=== PATIENT | female | born 1985 | race Caucasian/White ===

== ENCOUNTER 2017-08-24 08:35 | Outpatient (CLI) | payer MEDICAID ==
[2017-08-24] MEDS ORDERED: GADOBUTROL 7.5 MMOL/7.5 ML VIAL ONE (08:50)
[2017-08-24] MEDS ORDERED: GADOBUTROL 7.5 MMOL/7.5 ML VIAL IVP ONE ×2 (09:26)
--- NOTE | 2017-08-24 12:58 | MRI Report ---
EXAM: MRI BRAIN WITHOUT AND WITH CONTRAST EXAM DATE: 08/24/2017 10:48 AM. CLINICAL HISTORY: MULTIPLE SCLEROSIS. COMPARISON: MR brain 10/18/2014 TECHNIQUE: Multiplanar, multisequence T1-weighted and fluid-sensitive MR sequences of the brain were performed. Sequences optimized for routine evaluation. Other: None. IV Contrast: Yes. 6.5 mL Gadavist FINDINGS: Brain Volume: Normal for age. Parenchyma: No acute hemorrhage, mass, or infarct. Numerous, greater than 30 T2/FLAIR hyperintense wh ite matter lesions are seen supratentorially and infratentorially, many with corresponding T1 hypoint ensities, compatible with demyelinating plaques. Compared to the prior study, the following new lesio ns are seen: A 3 mm lesion anterior left medulla (series 501 image 4), a 5 mm lesion anterior medial left cerebellar hemisphere (series 501 image 6), a 6 mm lesion lateral right frontal lobe (series 601 image 20), an 8 mm lesion anterior left centrum semiovale (series 601 image 19), a 9 mm lesion right parietal lobe (series 601 image 17), a 9 mm lesion right parietal lobe (series 601 image 16), a 9 mm lesion left periatrial white matter (series 601 image 16), an 11 mm lesion adjacent to frontal horn of the right lateral ventricle (series 601 image 15), a 7 mm lesion anterior left frontal lobe (serie s 601 image 15), a 9 mm lesion anterior right frontal lobe (series 601 image 14), a 9 mm lesion anter ior left frontal lobe (series 601 image 14), a 14 mm lesion posterior limb left internal capsule (ser ies 601 image 13), an 8 mm lesion anterior left temporal lobe (series 601 image 11). Of these new les ions, the following lesions also enhance, suggesting active inflammation/demyelination: Lesion within the anterior left medulla (series 901 image 4), a lesion lateral right frontal lobe (series 901 imag e 19), a second lesion lateral right frontal lobe (series 901 image 20) Ventricles/Cisterns: No hydrocephalus. No abnormal extra-axial fluid collection or hemorrhage. Orbits: Symmetric and unremarkable. Sella Turcica: The pituitary gland, cavernous sinuses, suprasellar cistern and optic chiasm are unrem arkable. IAC: Symmetric and unremarkable. Vasculature: Normal signal flow void is seen in the major arterial structures at the skull base. The dural sinuses are patent and enhance normally. Sinuses: No acute sinus disease. Bones: No focal pathologic appearing marrow signal changes. Other: None. IMPRESSION: 1. Numerous, greater than 30 T2/FLAIR hyperintense white matter lesions are seen supratentorially and infratentorially, many with corresponding T1 hypointensities, compatible with demyelinating plaques. 2. Compared to the prior study performed on 10/18/2014, at least 13 new lesions are seen both above a nd below the tentorium, as detailed above. 3. Of these new lesions, the following lesions also enhance, suggesting active inflammation/demyelina tion: Lesion within the anterior left medulla (series 901 image 4), a lesion lateral right frontal lo be (series 901 image 19), and a second lesion lateral right frontal lobe (series 901 image 20) 4. Qualitatively normal brain volume. [facility] Referring Provider Line: [phone] SITE ID: [id number]
== END 2017-08-24 08:36 | disposition home or self-care (01) ==
LOC: DI 08:35
PROVIDERS: ATTEND Psychiatry & Neurology Neurology
DX: G35 Multiple sclerosis (principal)
CPT/HCPCS: 70553; A9585

== ENCOUNTER 2017-10-12 13:57 | Outpatient (CLI) | payer MEDICAID ==
[~2017-10-12 13:57] MED LIST: GADOBUTROL 7.5 MMOL/7.5 ML SYRINGE ONE
[2017-10-12] MEDS ORDERED: GADOBUTROL 7.5 MMOL/7.5 ML SYRINGE IVP ONE (14:46)
--- NOTE | 2017-10-13 08:23 | MRI Report ---
EXAM: MRI BRAIN WITHOUT AND WITH CONTRAST EXAM DATE: 10/12/2017 03:10 PM. CLINICAL HISTORY: Multiple sclerosis follow-up. COMPARISON: 08/24/2017. TECHNIQUE: Multiplanar, multisequence T1-weighted and fluid-sensitive MR sequences of the brain were performed. Sequences optimized for White matter evaluation. Other: None. IV Contrast: Without and wit h 7 mL Gadavist. FINDINGS: Brain Volume: Subjectively stable. Parenchyma: No evidence for acute or recent ischemic infarct, cerebral hemorrhage or space-occupying tumor-like mass. New prominent plaque-like T2 hyperintensity in the left postcentral gyrus accompanied by a central re gion of ovoid strong enhancement measuring 6 x 4 mm. This is consistent with interval disease progres rafael and activity. Enhancing lesions seen on the prior study no longer enhance. Extensive white matter disease T1 hypointense/T2 hyperintense lesion burden above and below the tento rium otherwise appears grossly stable. Ventricles/Cisterns: No hydrocephalus. No abnormal extra-axial fluid collection or hemorrhage. Orbits: Symmetric and unremarkable. Sella Turcica: The pituitary gland, cavernous sinuses, suprasellar cistern and optic chiasm are unrem arkable. IAC: Symmetric and unremarkable. Vasculature: Normal signal flow void is seen in the major arterial structures at the skull base. The dural sinuses are patent and enhance normally. Sinuses: Stable multifocal paranasal sinus disease. Bones: No developing focal pathologic appearing marrow signal changes. Other: None. IMPRESSION: 1. Interval white matter disease progression. There is a new dominant plaque-like T2 hyperintensity i n the left postcentral gyrus with enhancement consistent with disease activity. 2. White matter disease enhancement seen previously has resolved. 3. Extensive T1 hypointense/T2 hyperintense lesion burden above and below the tentorium consistent wi th MS otherwise appears stable. [facility] Referring Provider Line: [phone] SITE ID: [id number]
== END 2017-10-12 13:58 | disposition home or self-care (01) ==
LOC: DI 13:57
PROVIDERS: ATTEND Psychiatry & Neurology Neurology
DX: R90.82 White matter disease, unspecified (principal); G35 Multiple sclerosis
CPT/HCPCS: 70553; A9585

== ENCOUNTER 2017-10-24 11:30 | Outpatient (CLI) | payer MEDICAID | END 2017-10-24 11:45 | disposition home or self-care (01) | LOC: RT.N 11:30 | PROVIDERS: ATTEND Nurse Practitioner Gerontology | DX: R00.2 Palpitations (principal); R07.9 Chest pain, unspecified | CPT/HCPCS: 93005 ==

== ENCOUNTER 2017-10-26 09:33 | Outpatient (CLI) | payer MEDICAID ==
[2017-10-26 13:57] LABS: ALBUMIN 4.6 g/dL (3.2-5.5); ALBUMIN/GLOBULIN RATIO 1.5 (1.0-2.2); ALKALINE PHOSPHATASE 31 IU/L (42-121); ALT ALANINE AMINOTRANSFERASE 15 IU/L (10-60); AST ASPARTATE AMINOTRANSFERASE 16 IU/L (10-42); BILIRUBIN,TOTAL 0.8 mg/dL (0.2-1.0); BUN - BLOOD UREA NITROGEN 16 mg/dL (6-20); CALCIUM 9.3 mg/dL (8.5-10.3); CARBON DIOXIDE - CO2 27 mmol/L (21-32); CHLORIDE 104 mmol/L (101-111); CHOL/HDL RATIO 2.8 (<4.4); CHOLESTEROL 144 mg/dL; CREATININE 0.7 mg/dL (0.4-1.0); GFR - MDRD 98 (>89); GLUCOSE 91 mg/dL (70-100); HDL CHOLESTEROL 52 mg/dL; LDL CHOLESTEROL,CALCULATED 83 mg/dL; LDL/HDL RATIO 1.6 (<4.4); SODIUM 137 mmol/L (135-145); TOTAL PROTEIN 7.7 g/dL (6.7-8.2); VLDL CHOLESTEROL 9 mg/dL
== END 2017-10-26 09:34 ==
LOC: LAB.N 09:33
PROVIDERS: ATTEND Nurse Practitioner Gerontology
DX: Z13.9 Encounter for screening, unspecified (principal)
CPT/HCPCS: 36415; 80053; 80061; 83721; 84443

== ENCOUNTER 2018-03-27 07:41 | Outpatient (CLI) | payer MEDICAID ==
[2018-03-27] MEDS ORDERED: GADOBUTROL 7.5 MMOL/7.5 ML VIAL ONE (07:47)
[2018-03-27] MEDS ORDERED: GADOBUTROL 7.5 MMOL/7.5 ML VIAL IVP ONE ×2 (09:03)
--- NOTE | 2018-03-27 15:59 | MRI Report ---
Reason: MULTIPLE SCLEROSIS Procedure Date: 03/27/2018 Accession Number: [id number] / [id number] Procedure: MRI - Thoracic Spine W/WO CPT Code: FULL RESULT: EXAM: MRI THORACIC SPINE WITHOUT AND WITH CONTRAST EXAM DATE: 03/27/2018 08:19 AM. CLINICAL HISTORY: Multiple sclerosis. COMPARISONS: BRAIN W/WO 10/12/2017 2:30 PM CERVICAL SPINE W/WO 03/27/2018 7:46 AM. TECHNIQUE: Multiplanar, multisequence T1-weighted and fluid-sensitive sequences of the thoracic spine, the sagittal images extend from C7 to L1 before and after administration of intravenous contrast. Note: Axial pre-contrast and post-contrast imaging is performed from upper T2 inferiorly through mid T8 level. Per charge histotechnologist, upper thoracic spine axial coverage is the institution standard protocol. Other: Without and with 6.5 mL Gadavist. IV contrast: Yes. FINDINGS: Spinal Cord: Focal plaque-like T2 hyperintense abnormality in the lower thoracic cord at the upper T12 level measuring 8 mm craniocaudal and 5 mm AP. No associated enhancement. This is consistent with a focus of demyelination though the appearance is nonspecific. Reference image 8 of series 601. No other definite evidence of focal thoracic cord T2 hyperintense signal abnormality or enhancement. Alignment: No scoliosis or spondylolisthesis. Bone Marrow: No gross fractures or bone lesion. No bone marrow edema or abnormal enhancement. Disk Levels/Facets: Vertebral body heights and intervertebral disk spaces are grossly maintained. Approximately 3 mm ventral extradural defect which may be a posterior disk protrusion to the right of midline is present at the T8-T9 level, minimal to mild potential mass effect but only visualized on sagittal images. No other evidence for significant stenosis or disk herniation. Spinal Canal: No enhancing masses within the spinal canal. No epidural abscess. Musculature: Normal. No edema, enhancement, or fatty atrophy. Other: None. IMPRESSION: 1. 5 x 8 mm focus of abnormal T2 hyperintensity in the lower thoracic cord at the T12 level without enhancement, this may be secondary to focal demyelinating disease. 2. Small probable right posterior paracentral disk herniation at T8-T9, minimal to mild potential mass effect. 3. No other evidence for acute abnormality or significant stenosis. [facility]
--- NOTE | 2018-03-29 12:02 | MRI Report ---
Reason: MULTIPLE SCLEROSIS Procedure Date: 03/27/2018 Accession Number: [id number] / [id number] Procedure: MRI - Cervical Spine W/WO CPT Code: FULL RESULT: EXAM: MRI CERVICAL SPINE WITHOUT AND WITH CONTRAST EXAM DATE: 03/27/2018 08:59 AM. CLINICAL HISTORY: MULTIPLE SCLEROSIS. COMPARISON: BRAIN W/WO 10/12/2017 2:30 PM THORACIC SPINE W/WO 03/27/2018 8:19 AM. TECHNIQUE: Multiplanar, multisequence T1-weighted and fluid-sensitive sequences of the cervical spine before and after administration of intravenous contrast. Other: None. IV contrast: 6.5 cc Gadavist. FINDINGS: Neurologic Structures: The visualized posterior fossa structures are unremarkable. Nonenhancing inferior left cerebellar white matter 6 mm increased signal present on the MRI brain 10/12/2017. Focal 4 mm nonenhancing increased signal anterior left medulla which is unchanged as compared to MRI brain 10/12/2017. Nonenhancing increased signal right lateral cervical cord C5 level 4 mm transverse dimension, 3 mm AP dimension is 7 mm in height (image 8 series 401 and image 14 series 1801). Alignment: No scoliosis or spondylolisthesis. Bone Marrow: No gross fractures or bone lesions. No marrow edema or abnormal enhancement. Interspace Levels/Facets: C1-C2: Unremarkable. C2-C3: Unremarkable. C3-C4: unremarkable. C4-C5: Unremarkable. C5-C6: Unremarkable. C6-C7: Unremarkable. C7-T1: Mild bilateral facet joint arthrosis. Mild left foraminal stenosis from facet hypertrophy. Spinal Canal: No enhancing lesions within the spinal canal. No epidural abscess. Musculature: Normal. No edema, enhancement, or fatty atrophy. Other: The paravertebral and prevertebral soft tissues are normal. IMPRESSION: 1. Nonenhancing inferior left cerebellar white matter 6 mm focal increased signal without appreciable interval change as compared to the MRI brain 10/12/2017. 2. Focal 4 mm nonenhancing increased signal anterior left medulla without interval change as compared to MRI brain 10/12/2017. 3. Nonenhancing right cervical cord increased signal without cord expansion 4 mm in transverse dimension, 3 mm in AP dimension and 7 mm in height at the C5 level. 4. Findings consistent with demyelinating disease or multiple sclerosis. [facility]
== END 2018-03-27 07:42 | disposition home or self-care (01) ==
LOC: DI 07:41
PROVIDERS: ATTEND Psychiatry & Neurology Neurology
DX: G35 Multiple sclerosis (principal); M47.9 Spondylosis, unspecified
CPT/HCPCS: 72156; 72157; A9585

== ENCOUNTER 2018-10-22 13:23 | Outpatient (CLI) | payer MEDICAID ==
--- NOTE | 2018-10-22 15:28 | Ultrasound Report ---
Reason: ABDOMINAL PAIN Procedure Date: 10/22/2018 Accession Number: [id number] / [id number] Procedure: US - Pelvic w/Transvaginal CPT Code: FULL RESULT: EXAM: PELVIC ULTRASOUND EXAM DATE: 10/22/2018 02:35 PM. CLINICAL HISTORY: Abdominal pain. COMPARISON: None. TECHNIQUE: Realtime transabdominal pelvic scan performed to identify the uterus and adnexa and as an overview of other pelvic structures, followed by transvaginal scan to provide greater detail of the uterus and adnexa, with static image documentation. FINDINGS: Uterus: 9.3 x 4.0 4.8 cm, volume 100.4 cc. Anteverted position. Normal overall size and echotexture. Masses: None. Endometrium: 5 mm. An intrauterine device is appropriately positioned. Cervix: Unremarkable. Right Ovary: 2.1 x 2.0 x 1.7 cm, volume 3.7 cc. Normal echotexture and blood flow. Left Ovary: 3.5 x 2.6 x 3.1 cm, volume 14.8 cc. Normal echotexture and blood flow. A 2.1 x 1.9 x 1.8 cm cyst is identified. Free Fluid: None. Other: None. IMPRESSION: Left adnexal cyst as described. [facility]
--- NOTE | 2018-10-22 15:32 | Ultrasound Report ---
Reason: ABDOMINAL PAIN Procedure Date: 10/22/2018 Accession Number: [id number] / [id number] Procedure: US - Abdomen Complete CPT Code: FULL RESULT: EXAM: ABDOMEN ULTRASOUND EXAM DATE: 10/22/2018 03:17 PM. CLINICAL HISTORY: Abdominal pain. COMPARISON: None. TECHNIQUE: Real-time scanning was performed with static images obtained. FINDINGS: Liver: Echotexture is within normal limits. Right lobe of the liver contains a 0.7 cm cyst laterally and the liver measures 16.6 cm. Main portal vein flow: Hepatopetal. Gallbladder: Normal. No stones, wall thickening, or sonographic Burton's sign. Biliary System: Common bile duct measures 3 mm. No intrahepatic or extrahepatic ductal dilatation. Pancreas: Visualized portion is unremarkable. Kidneys: Right: 11.2 cm longitudinally. Normal. No contour-deforming mass, stones, or hydronephrosis. Left: 10.9 cm longitudinally. Normal. No contour-deforming mass, stones, or hydronephrosis. Spleen: 11.3 cm. Normal in size and echotexture. Aorta and Inferior Vena Cava: Unremarkable. Other: None. IMPRESSION: Hepatic cyst, benign finding. [facility]
== END 2018-10-22 13:24 | disposition home or self-care (01) ==
LOC: DI 13:23
PROVIDERS: ATTEND Nurse Practitioner Gerontology
DX: N94.89 Other specified conditions associated with female genital organs and menstrual cycle (principal); K76.89 Other specified diseases of liver
CPT/HCPCS: 76700; 76830; 76856

== ENCOUNTER 2018-10-29 09:04 | Emergency (ER) | payer MEDICAID ==
[2018-10-29] MEDS ORDERED: methylPREDNISolone SUCCINATE 1,000 MG in SODIUM CHLORIDE 0.9% 250 ML IV STA (09:34)
--- NOTE | 2018-10-29 09:36 | ED Physician Documentation ---
PD HPI FOCAL NEURO - Stated complaint Stated Complaint: DOUBLE VISION - Chief complaint Chief Complaint: General - History obtained from History obtained from: Patient, Family - History of Present Illness Timing - onset: How many days ago (3) Timing - duration: Days (3) Timing - details: Gradual onset, Still present, Waxing and waning Severity of deficit: Moderate Weakness: No: Face Numbness: No: Face Associated symptoms: No: Headache Contributing factors: positive: Other (MS). negative: Anticoagulated Baseline status: positive: A&OX3, ambulatory, indep Similar symptoms before: Diagnosis (MS flare) Recently seen: Clinic (2 months ago for the "MS hug" general pains appearing.) - Additional information Additional information: 33-year-old female with a history of remitting and relapsing MS has developed symptoms of double vision over the past 3 days and she has had some improvement with extra sleep she has had worsening of her symptoms now. She states that previously she has had episodes of double vision and last time she believes she waited too long to come in and get the infusion. She states that it has been about 2 years since her last relapse. Review of Systems Constitutional: denies: Fever, Chills, Myalgias, Fatigue Eyes: reports: Other (double vision). denies: Loss of vision, Decreased vision Ears: denies: Ear pain Nose: denies: Rhinorrhea / runny nose, Congestion Throat: denies: Sore throat Cardiac: denies: Chest pain / pressure, Palpitations Respiratory: denies: Dyspnea, Cough GI: reports: Other ("digestive issues"). denies: Abdominal Pain, Nausea, Vomiting : denies: Dysuria, Frequency Skin: denies: Rash Musculoskeletal: denies: Neck pain, Back pain, Extremity pain Neurologic: reports: Numbness (To the right side of the face is mild and waxing and wanning), Other (gait abnormality is present. Need to place feet. Random pains.). denies: Generalized weakness, Focal weakness, Difficulty speaking, Near syncope, Altered mental status Psychiatric: denies: Depressed, Suicidal PD PAST MEDICAL HISTORY - Past Medical History Past Medical History: Yes Cardiovascular: None Respiratory: None Neuro: Multiple sclerosis Endocrine/Autoimmune: None GI: None CORPORATE COMMUNICATIONS ASSOCIATE: None : None HEENT: None Psych: None Musculoskeletal: None Derm: None - Past Surgical History Past Surgical History: No - Allergies Allergies/Adverse Reactions: Allergies Allergy/AdvReac Type Severity Reaction Status Date / Time No Known Drug Allergies Allergy Verified 10/29/18 09:11 - Social History Does the pt smoke?: No Smoking Status: Never smoker Does the pt drink ETOH?: Yes ETOH Use: Wine Does the pt have substance abuse?: No Substance Use and Type: Marijuana - Immunizations Immunizations are current?: No Immunizations: TDAP >10years/unknown - POLST Patient has POLST: No PD ED PE NORMAL - Vitals Vital signs reviewed: Yes (hypertensive ) - General General: Alert and oriented X 3, Well developed/nourished, Other (wearing tape over the left eyeglass lens) - HEENT HEENT: Atraumatic, PERRL, EOMI, Other (cerumen bilaterally. The gaze is minimally dysconjugate) - Neck Neck: Supple, no meningeal sign, No bony TTP - Cardiac Cardiac: RRR, No murmur - Respiratory Respiratory: No respiratory distress, Clear bilaterally - Abdomen Abdomen: Soft, Non tender - Back Back: No CVA TTP, No spinal TTP - Derm Derm: Normal color, Warm and dry, No rash - Extremities Extremities: No deformity, No edema - Neuro Neuro: Alert and oriented X 3, breakfast server 2-12 intact, No motor deficit, No sensory deficit, Normal speech Eye Opening: Spontaneous Motor: Obeys Commands Verbal: Oriented GCS Score: 15 - Psych Psych: Normal mood, Normal affect NIHSS - Level of Consciousness Level of consciousness: (0) Alert, Keenly responsive LOC Questions: (0) Answers both Q's correct LOC Commands: (0) Performs both correctly - Gaze Best Gaze: (1) Partial gaze palsy - Visual Visual: (0) No loss - Facial Palsy Facial Palsy: (0) Normal, symmetrical movement - Motor Arms (both separate) Motor Arm (right): (0) No drift Motor Arm (left): (0) No drift - Motor Legs (both separate) Motor Leg (right): (0) No drift Motor Leg (left): (0) No drift - Limb Ataxia Limb Ataxia: (0) Absent - Sensory Sensory: (0) Normal - Best Language Best Language: (0) No aphasia - Dysarthria Dysarthria: (0) Normal - Extinction and Inattention (formally neg Extinction and inattention: (0) No abnormality - Total Score/Results Total Score/Result: 1 Results - Vitals Vitals: Vital Signs - 24 hr 10/29/18 09:08 Temperature 36.5 C Heart Rate 79 Respiratory 14 Rate Blood Pressure 122/86 H O2 Saturation 100 Oxygen O2 Source Room air PD MEDICAL DECISION MAKING - ED course Complexity details: reviewed old records, re-evaluated patient, considered differential, d/w patient, d/w family ED course: 33-year-old female with a history of chronic remitting and relapsing MS appears to be having an acute flare. This appears to have been triggered by staying up all night with her who was having a problem with some kidney stones. She is started on a methylprednisolone infusion and she will receive 1000 mg today. She will call her primary Pauly Gonzales for an order for infusions to continue at the [facility] Departure - Departure Disposition: 01 Home, Self Care Clinical Impression: Exacerbation of multiple sclerosis Condition: Stable Instructions: Multiple Sclerosis Follow-Up: Pauly Mendoza ARNP [Primary Care Provider] - Comments: Talk to Pauly Gonzales by phone to have infusions of methylprednisolone set up at the [facility].
[2018-10-29 11:06] VITALS: BP 118/76
== END 2018-10-29 11:09 | disposition home or self-care (01) ==
LOC: ED 09:04
DX: G35 Multiple sclerosis (principal)
CPT/HCPCS: 96365; 99283; 99284

== ENCOUNTER 2018-11-09 15:37 | Outpatient (CLI) | payer MEDICAID ==
[2018-11-09] MEDS ORDERED: GADOBUTROL 7.5 MMOL/7.5 ML VIAL ONE (16:58)
[2018-11-09] MEDS ORDERED: GADOBUTROL 7.5 MMOL/7.5 ML VIAL IVP ONE (17:30)
--- NOTE | 2018-11-09 18:13 | MRI Report ---
Reason: MS Procedure Date: 11/09/2018 Accession Number: [id number] / [id number] Procedure: MRI - Brain W/WO CPT Code: FULL RESULT: EXAM: MRI BRAIN WITHOUT AND WITH CONTRAST EXAM DATE: 11/09/2018 05:56 PM. CLINICAL HISTORY: 33-year-old with history of multiple sclerosis presenting with worsening symptoms. Evaluate for intracranial pathology or interval change. COMPARISON: MR brain 10/12/2017. TECHNIQUE: Multiplanar, multisequence T1-weighted and fluid-sensitive MR sequences of the brain were performed. Sequences optimized for demyelinating disease evaluation. Other: None. IV Contrast: 6 cc Gadavist. FINDINGS: Brain Volume: Normal for age. Parenchyma: No acute parenchymal hemorrhage, mass, or midline shift. There is moderate to severe bilateral areas of juxtacortical, subcortical, and periventricular T2/FLAIR signal hyperintensity seen that appears similar in size and distribution to MR 10/12/2017. There are T2 hyperintense lesions involving the corpus callosum that appears similar to prior study. There is a T2 hyperintense lesion seen within the right brachium pontis extending into the right cerebellum measuring 15 x 16 mm open. Series 601, image 6) not definitively seen on prior study. There are additional brainstem and cerebellar T2 hypertensive lesions seen that appears similar to prior study. No areas of restricted diffusion seen to suggest acute infarct. There is patchy enhancement of the right brachium pontis lesion. Ventricles/Cisterns: No hydrocephalus. No abnormal extra-axial fluid collection or hemorrhage. Orbits: Symmetric and unremarkable. Sella Turcica: The pituitary gland, cavernous sinuses, suprasellar cistern and optic chiasm are unremarkable. IAC: Symmetric and unremarkable. Vasculature: Normal signal flow void is seen in the major arterial structures at the skull base. The dural sinuses are patent and enhance normally. Sinuses: Tiny right and small to moderate left maxillary mucosal retention cyst versus polyps. Minimal mucosal thickening of the ethmoid air cells. Mastoid air cells and middle ear cavities appear clear. Bones: No focal pathologic appearing marrow signal changes. Other: None. IMPRESSION: 1. Moderate to severe white matter changes seen in a pattern and distribution that can be compatible with patient's history of demyelinating disease. Compared to MR brain 10/12/2017 there is new enhancing T2 hyperintense lesion within the right brachium pontis extending into the right cerebellum measuring 15 x 16 mm concerning for active demyelinating plaque. No definite additional new T2 hypertensive lesions. No definite additional new abnormal postcontrast enhancement seen. 2. No acute infarct, acute intracranial hemorrhage, mass, hydrocephalus, or midline shift. [facility]
== END 2018-11-09 15:38 | disposition home or self-care (01) ==
LOC: DI 15:37
PROVIDERS: ATTEND Psychiatry & Neurology Neurology
DX: G35 Multiple sclerosis (principal)
CPT/HCPCS: 70553; A9585

== ENCOUNTER 2018-11-21 08:00 | Outpatient (CLI) | payer MEDICAID ==
[2018-11-21 18:34] LABS: BASOPHILS % (AUTO) 0.6 %; EOSINOPHILS # (AUTO) 0.1 10^3/uL (0.0-0.7); EOSINOPHILS % (AUTO) 1.7 %; HGB - HEMOGLOBIN 12.4 g/dL (12.0-16.0); LYMPHOCYTES # (AUTO) 1.9 10^3/uL (1.5-3.5); LYMPHOCYTES % (AUTO) 36.3 %; MEAN CORPUSCULAR HEMOGLOBIN 27.7 pg (27.0-31.0); MEAN CORPUSCULAR HGB CONC 30.2 g/dL (32.0-36.0); MEAN CORPUSCULAR VOLUME 91.5 fL (81.0-99.0); MEAN PLATELET VOLUME 11.3 fL (7.9-10.8); MONOCYTES # (AUTO) 0.4 10^3/uL (0.0-1.0); MONOCYTES % (AUTO) 8.2 %; NEUTROPHILS # (AUTO) 2.8 10^3/uL (1.5-6.6); PLT - PLATELET COUNT 226 10^3/uL (130-450); RED BLOOD COUNT 4.48 10^6/uL (4.20-5.40); RED CELL DISTRIBUTION WIDTH 13.4 % (12.0-15.0); WHITE BLOOD COUNT 5.2 x10^3/uL (4.8-10.8)
[2018-11-21 18:56] LABS: ALT ALANINE AMINOTRANSFERASE 24 IU/L (10-60); AST ASPARTATE AMINOTRANSFERASE 17 IU/L (10-42)
== END 2018-11-21 23:59 | disposition home or self-care (01) ==
LOC: LAB.N 08:00
PROVIDERS: ATTEND Psychiatry & Neurology Neurology
DX: G35 Multiple sclerosis (principal); Z51.81 Encounter for therapeutic drug level monitoring
CPT/HCPCS: 36415; 84450; 84460; 85025

== ENCOUNTER 2019-05-07 09:46 | Outpatient (CLI) | payer MEDICAID ==
[2019-05-07 12:34] LABS: ALT ALANINE AMINOTRANSFERASE 16 IU/L (10-60); AST ASPARTATE AMINOTRANSFERASE 14 IU/L (10-42)
[2019-05-07 12:39] LABS: EOSINOPHILS # (AUTO) 0.2 10^3/uL (0.0-0.7); EOSINOPHILS % (AUTO) 3.6 %; HGB - HEMOGLOBIN 12.8 g/dL (12.0-16.0); LYMPHOCYTES # (AUTO) 1.5 10^3/uL (1.5-3.5); LYMPHOCYTES % (AUTO) 35.9 %; MEAN CORPUSCULAR HEMOGLOBIN 28.8 pg (27.0-31.0); MEAN CORPUSCULAR HGB CONC 31.8 g/dL (32.0-36.0); MEAN CORPUSCULAR VOLUME 90.3 fL (81.0-99.0); MEAN PLATELET VOLUME 11.3 fL (7.9-10.8); MONOCYTES # (AUTO) 0.3 10^3/uL (0.0-1.0); MONOCYTES % (AUTO) 7.4 %; NEUTROPHILS # (AUTO) 2.2 10^3/uL (1.5-6.6); NEUTROPHILS % (AUTO) 51.9 %; PLT - PLATELET COUNT 206 10^3/uL (130-450); RED BLOOD COUNT 4.45 10^6/uL (4.20-5.40); RED CELL DISTRIBUTION WIDTH 12.7 % (12.0-15.0); WHITE BLOOD COUNT 4.2 x10^3/uL (4.8-10.8)
== END 2019-05-07 23:59 | disposition home or self-care (01) ==
LOC: LAB.N 09:46
PROVIDERS: ATTEND Psychiatry & Neurology Neurology
DX: G35 Multiple sclerosis (principal); Z51.81 Encounter for therapeutic drug level monitoring; Z79.899 Other long term (current) drug therapy
CPT/HCPCS: 36415; 84450; 84460; 85025

== ENCOUNTER 2019-06-13 08:00 | Outpatient (CLI) | payer MEDICAID ==
[2019-06-13 12:16] LABS: CALCIUM 9.3 mg/dL (8.5-10.3); CREATININE 0.7 mg/dL (0.4-1.0)
== END 2019-06-13 23:59 | disposition home or self-care (01) ==
LOC: LAB.N 08:00
PROVIDERS: ATTEND Physician Assistant Medical
DX: R82.4 Acetonuria (principal); R80.9 Proteinuria, unspecified
CPT/HCPCS: 36415; 80048; 81001

== ENCOUNTER 2019-06-13 08:00 | Outpatient (CLI) | payer MEDICAID ==
[2019-06-13 19:17] LABS: GLUCOSE, URINE (UA) NEGATIVE (NEGATIVE); KETONES,URINE (UA) 15 mg/dL (NEGATIVE); LEUKOCYTE ESTERASE, URINE NEGATIVE (NEGATIVE); NITRITE,URINE NEGATIVE (NEGATIVE); OCCULT BLOOD,URINE NEGATIVE (NEGATIVE); PROTEIN,URINE NEGATIVE (NEGATIVE); UROBILINOGEN,URINE 0.2 (NORMAL) E.U./dL (NORMAL)
[2019-06-13 19:36] LABS: BILIRUBIN,URINE NEGATIVE (NEGATIVE); CLARITY,URINE TURBID (CLEAR); ICTOTEST,URINE NEGATIVE
[2019-06-13 19:37] LABS: AMORPHOUS SEDIMENT,UR Moderate /LPF; BACTERIA,URINE None Seen /HPF (None Seen); CRYSTALS,URINE 11-25 Ca Oxalate /LPF; MUCUS,URINE Few Strands; RBC,URINE None Seen /HPF (0-5); SQUAMOUS EPITHELIAL CELL,UR RARE Squamous (<= Few)
== END 2019-06-13 23:59 | disposition home or self-care (01) ==
LOC: LAB.R 08:00
PROVIDERS: ATTEND Physician Assistant Medical
DX: R80.9 Proteinuria, unspecified (principal); R82.4 Acetonuria
CPT/HCPCS: 81001; 81003; 87086

== ENCOUNTER 2019-09-01 05:22 | Emergency (ER) | payer MEDICAID ==
--- NOTE | 2019-09-01 05:31 | ED Physician Documentation ---
PD HPI NVD - Stated complaint Stated Complaint: VOMITING/WEAKNESS - Chief complaint Chief Complaint: Abd Pain - History obtained from History obtained from: Patient - History of Present Illness Timing - onset: How many days ago (2-3) Timing - details: Gradual onset Associated symptoms: No: Fever, Abdominal pain Worsened by: Eating Similar symptoms before: No diagnosis (similar symptoms 3 weeks ago, was seen by her neurologist (in [place]) and had good symptom relief with phenergan.) Recently seen: Not recently seen - Additonal information Additional information: c/o 2-3 days of nausea and vomiting, dizziness, generalized weakness. Patient has MS and she does not feel like her symptoms are due to a MS flair except possibly the dizziness and generalized weakness. she has zofran at home but this has not given adequate relief. Review of Systems Constitutional: denies: Fever, Chills, Sweats Cardiac: reports: Reviewed and negative Respiratory: reports: Reviewed and negative GI: reports: Nausea, Vomiting. denies: Abdominal Pain, Diarrhea : denies: Dysuria, Frequency, Incontinent Neurologic: reports: Generalized weakness. 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 : None HEENT: None Psych: None Musculoskeletal: None Derm: None - Past Surgical History Past Surgical History: No - Present Medications Home Medications: Ambulatory Orders Medication Instructions Recorded Confirmed Cholecalciferol (Vitamin D3) 1,000 unit PO DAILY 10/31/18 10/31/18 [Vitamin D3] Dimethyl Fumarate [Tecfidera] 240 mg PO BID 10/31/18 10/31/18 Vitamin B Complex 1 each PO DAILY 10/31/18 10/31/18 Promethazine [Phenergan] 25 mg PO Q6H PRN #10 tab 09/01/19 - Allergies Allergies/Adverse Reactions: Allergies Allergy/AdvReac Type Severity Reaction Status Date / Time No Known Drug Allergies Allergy Verified 09/01/19 05:31 - Social History Does the pt smoke?: No Smoking Status: Never smoker Does the pt drink ETOH?: Yes Does the pt have substance abuse?: No - Immunizations Immunizations are current?: No Immunizations: TDAP >10years/unknown - POLST Patient has POLST: No PD ED PE NORMAL - Vitals Vital signs reviewed: Yes - General General: Alert and oriented X 3, Well developed/nourished, Other (appears uncomfortable at times during H+P ) - HEENT HEENT: Atraumatic, PERRL, EOMI, Other (tacky/pasty mucous membranes) - Neck Neck: Supple, no meningeal sign - Cardiac Cardiac: RRR, No murmur - Respiratory Respiratory: No respiratory distress, Clear bilaterally - Abdomen Abdomen: Soft, Non tender - Derm Derm: Normal color, Warm and dry - Neuro Neuro: Alert and oriented X 3, Normal speech, Other (mild left ptosis. bilateral, mild rotatory nystagmus ) Results - Vitals Vitals: Vital Signs - 24 hr 09/01/19 09/01/19 05:25 07:11 Temperature 36.6 C 36.7 C Heart Rate 92 70 Respiratory 20 16 Rate Blood Pressure 122/51 L 118/70 O2 Saturation 97 99 Oxygen O2 Source Room air - Labs Labs: Laboratory Tests 09/01/19 09/01/19 05:37 05:37 WBC 11.1 H RBC 5.12 Hgb 15.1 Hct 43.9 MCV 85.7 MCH 29.5 MCHC 34.4 RDW 12.5 Plt Count 302 MPV 10.7 Neut # (Auto) 8.9 H Lymph # (Auto) 1.5 [place] # (Auto) 0.6 Eos # (Auto) 0.0 Baso # (Auto) 0.0 Absolute Nucleated RBC 0.00 Nucleated RBC % 0.0 Sodium 137 Potassium 3.8 Chloride 101 Carbon Dioxide 23 Anion Gap 13.0 BUN 22 H Creatinine 0.9 Estimated GFR (MDRD) 72 L Glucose 142 H Calcium 10.4 H Total Bilirubin 1.0 AST 27 ALT 26 Alkaline Phosphatase 37 L Total Protein 8.8 H Albumin 5.2 Globulin 3.6 Albumin/Globulin Ratio 1.4 Lipase 31 PD MEDICAL DECISION MAKING - ED course Complexity details: reviewed results, re-evaluated patient, considered differential, d/w patient ED course: after IV fluids (1 liter NS) and IV phenergan, patient appears comfortable and with moist mucous membranes. She reports feeling significantly better and is comfortable with discharge home. provided with rx for phenergan. Departure - Departure Disposition: 01 Home, Self Care Clinical Impression: Vomiting Qualifiers: Vomiting type: unspecified Vomiting Intractability: non-intractable Nausea presence: with nausea Qualified Code(s): R11.2 - Nausea with vomiting, unspecified Condition: Good Instructions: ED Nausea Vomiting Follow-Up: Pauly Mendoza ARNP [Primary Care Provider] - Prescriptions: Promethazine [Phenergan] 25 mg PO Q6H PRN #10 tab PRN Reason: Nausea / Vomiting Discharge Date/Time: 09/01/19 07:22
[2019-09-01 05:44] LABS: BASOPHILS % (AUTO) 0.4 %; EOSINOPHILS % (AUTO) 0.1 %; HGB - HEMOGLOBIN 15.1 g/dL (12.0-16.0); LYMPHOCYTES # (AUTO) 1.5 10^3/uL (1.5-3.5); LYMPHOCYTES % (AUTO) 13.1 %; MEAN CORPUSCULAR HEMOGLOBIN 29.5 pg (27.0-31.0); MEAN CORPUSCULAR HGB CONC 34.4 g/dL (32.0-36.0); MEAN CORPUSCULAR VOLUME 85.7 fL (81.0-99.0); MEAN PLATELET VOLUME 10.7 fL (7.9-10.8); MONOCYTES # (AUTO) 0.6 10^3/uL (0.0-1.0); MONOCYTES % (AUTO) 5.7 %; NEUTROPHILS # (AUTO) 8.9 10^3/uL (1.5-6.6); NEUTROPHILS % (AUTO) 80.3 %; PLT - PLATELET COUNT 302 10^3/uL (130-450); RED BLOOD COUNT 5.12 10^6/uL (4.20-5.40); RED CELL DISTRIBUTION WIDTH 12.5 % (12.0-15.0); WHITE BLOOD COUNT 11.1 x10^3/uL (4.8-10.8)
[2019-09-01 05:57] LABS: ALBUMIN 5.2 g/dL (3.2-5.5); ALBUMIN/GLOBULIN RATIO 1.4 (1.0-2.2); CALCIUM 10.4 mg/dL (8.5-10.3); CREATININE 0.9 mg/dL (0.4-1.0); TOTAL PROTEIN 8.8 g/dL (6.7-8.2)
[2019-09-01] MEDS ORDERED: PROMETHAZINE INJ 25 MG in SODIUM CHLORIDE 0.9% 50 ML IV STA (06:00)
[2019-09-01] MEDS ORDERED: SODIUM CHLORIDE 0.9% 1,000 ML IV STA (06:00)
[2019-09-01 07:23] VITALS: BP 118/70
== END 2019-09-01 07:22 | disposition home or self-care (01) ==
LOC: ED 05:22
DX: R11.2 Nausea with vomiting, unspecified (principal); G35 Multiple sclerosis
CPT/HCPCS: 36415; 80053; 83690; 85025; 96365; 99284; J7040

== ENCOUNTER 2019-09-26 10:25 | Outpatient (CLI) | payer MEDICAID ==
[2019-09-26 13:00] LABS: BASOPHILS # (AUTO) 0.1 10^3/uL (0.0-0.1); BASOPHILS % (AUTO) 0.8 %; EOSINOPHILS # (AUTO) 0.4 10^3/uL (0.0-0.7); HGB - HEMOGLOBIN 14.2 g/dL (12.0-16.0); LYMPHOCYTES # (AUTO) 2.1 10^3/uL (1.5-3.5); LYMPHOCYTES % (AUTO) 30.2 %; MEAN CORPUSCULAR HEMOGLOBIN 29.1 pg (27.0-31.0); MEAN CORPUSCULAR HGB CONC 32.9 g/dL (32.0-36.0); MEAN CORPUSCULAR VOLUME 88.5 fL (81.0-99.0); MEAN PLATELET VOLUME 11.2 fL (7.9-10.8); MONOCYTES # (AUTO) 0.5 10^3/uL (0.0-1.0); MONOCYTES % (AUTO) 7.6 %; NEUTROPHILS # (AUTO) 3.9 10^3/uL (1.5-6.6); NEUTROPHILS % (AUTO) 55.7 %; PLT - PLATELET COUNT 211 10^3/uL (130-450); RED BLOOD COUNT 4.88 10^6/uL (4.20-5.40); RED CELL DISTRIBUTION WIDTH 12.6 % (12.0-15.0); WHITE BLOOD COUNT 7.1 x10^3/uL (4.8-10.8)
[2019-09-26 13:46] LABS: ALBUMIN 4.6 g/dL (3.2-5.5); ALBUMIN/GLOBULIN RATIO 1.5 (1.0-2.2); BILIRUBIN,TOTAL 0.6 mg/dL (0.2-1.0); CALCIUM 9.3 mg/dL (8.5-10.3); CREATININE 0.6 mg/dL (0.4-1.0); MAGNESIUM 2.3 mg/dL (1.7-2.8); PHOSPHORUS 3.7 mg/dL (2.5-4.6); TOTAL PROTEIN 7.6 g/dL (6.7-8.2)
== END 2019-09-26 23:59 | disposition home or self-care (01) ==
LOC: LAB.WCP 10:25
PROVIDERS: ATTEND Physician Assistant Medical
DX: R00.2 Palpitations (principal)
CPT/HCPCS: 36415; 80053; 83735; 84100; 84443; 85025